=== PATIENT | male | born 1955 | race Caucasian/White ===

== ENCOUNTER 2016-10-21 13:14 | Emergency (ER) | payer SELFPAY | END 2016-10-21 14:20 | disposition home or self-care (01) | LOC: ER 13:14 | DX: M25.571 Pain in right ankle and joints of right foot (principal); X50.0XXA Overexertion from strenuous movement or load, initial encounter; Y92.838 Other recreation area as the place of occurrence of the external cause; Z79.899 Other long term (current) drug therapy | CPT/HCPCS: 73610; 96372; 99070; 99283; 99283-25 ==